=== PATIENT | male | born 1960 | race Two or more races ===

== ENCOUNTER 2018-04-04 18:45 | Emergency (ER) | payer SELFPAY ==
[2018-04-04] MEDS ORDERED: Ondansetron INJ* 2 MG/ML VIAL IV ONE (19:23)
[2018-04-04] MEDS ORDERED: Morphine VIAL* 10 MG/ML 1 ML VIAL IV ONE (19:23)
[2018-04-04] MEDS ORDERED: NS 0.9% 1000 ML* 1,000 ML IV ONE (19:23)
[2018-04-04] MEDS ORDERED: Morphine VIAL* 4 MG/ML VIAL (1 ml vial) ONE (19:26)
[2018-04-04 19:35] LABS: ABS Basophils 0 10^3/ul (0-0.2); ABS Eosinophils 0.2 10^3/ul (0-0.6); ABS Lymphocytes 1.9 10^3/ul (1.0-4.8); ABS Monocytes 0.9 10^3/ul (0-0.8); ABS Neutrophils 4.2 10^3/ul (1.5-7.7); ABS Nucleated RBC 0 10^3/ul; Eosinophil % 2.6 %; Hematocrit 41 % (42-52); Hemoglobin 13.8 g/dl (14.0-18.0); Lymphocyte % 26.4 %; Mean Corpuscular HGB Conc 34 g/dl (31-36); Mean Corpuscular Hemoglobin 28 pg (27-31); Mean Corpuscular Volume 83 fL (80-94); Mean Platelet Volume 7.4 fL (7.4-10.4); Nucleated Red Blood Cells % 0; Platelet Count 262 10^3/ul (150-450); Red Blood Count 4.89 10^6/ul (4.00-5.40); Red Cell Distribution Width 14 % (10.5-15); White Blood Count 7.3 10^3/ul (3.5-10.8)
[2018-04-04 19:52] LABS: EGFR Non-African American 106.5 (>60)
[2018-04-04] MEDS ORDERED: Iohexol 300* (CONTRAST) 10 ML SDV IV ONE (20:40)
[2018-04-04] MEDS ORDERED: Dicyclomine CAP* 10 MG PO ONE (21:26)
--- NOTE | 2018-04-04 21:28 | ED ---
Abdominal Pain/Male - HPI Summary HPI Summary: Patient complains of right lower quadrant pain 4 days, worse today. Abdominal pain described as intermittent, achy, worse with eating, accompanied by diarrhea 4. Denies history of same pain. Admits to history of heartburn. Denies fever, cough, sore throat, CP, SOB, N/V, change in urine. Medical history is HDL. Abdominal surgical history is none. - History of Current Complaint Chief Complaint: EDAbdPain Stated Complaint: ABDOMINAL PAIN Time Seen by Provider: 04/04/18 19:09 Hx Obtained From: Patient Onset/Duration: Gradual Onset, Lasting Days Timing: Intermittent Severity Initially: Moderate Severity Currently: Moderate Pain Intensity: 8 Pain Scale Used: 0-10 Numeric Location: Discrete At: RLQ Radiates: No Character: Dull Aggravating Factor(s): Food Alleviating Factor(s): Nothing Associated Signs And Symptoms: Positive: Diarrhea - Allergies/Home Medications Allergies/Adverse Reactions: Allergies Allergy/AdvReac Type Severity Reaction Status Date / Time No Known Allergies Allergy Verified 04/04/18 18:53 PMH/Surg Hx/FS Hx/Imm Hx Endocrine/Hematology History: Denies: Hx Diabetes Cardiovascular History: Denies: Hx Cardiac Arrest, Hx Hypertension History: Denies: Hx Dialysis, Hx Renal Disease Neurological History: Denies: Hx CVA Psychiatric History: Denies: Hx Autism Infectious Disease History: No Infectious Disease History: Denies: Traveled Outside the [place] in Last 30 Days - Family History Known Family History: Positive: Unknown - Social History Alcohol Use: None Substance Use Type: Reports: None Smoking Status (MU): Never Smoked Tobacco Review of Systems Constitutional: Negative Eyes: Negative ENT: Negative Cardiovascular: Negative Respiratory: Negative Positive: Abdominal Pain, Diarrhea Genitourinary: Negative Musculoskeletal: Negative Skin: Negative Neurological: Negative Psychological: Normal All Other Systems Reviewed And Are Negative: Yes Physical Exam - Summary Physical Exam Summary: Tenderness to palpation of right lower quadrant. Positive heel test. Abdominal exam otherwise unremarkable. Triage Information Reviewed: Yes Vital Signs On Initial Exam: Initial Vitals Temp Pulse Resp BP Pulse Ox 98.6 F 69 16 155/94 99 04/04/18 18:45 04/04/18 18:45 04/04/18 18:45 04/04/18 18:45 04/04/18 18:45 Vital Signs Reviewed: Yes Appearance: Positive: Well-Appearing Skin: Positive: Warm Head/Face: Positive: Normal Head/Face Inspection Eyes: Positive: Normal Neck: Positive: Supple Respiratory/Lung Sounds: Positive: Clear to Auscultation Cardiovascular: Positive: Normal Abdomen Description: Positive: Other: Musculoskeletal: Positive: Normal Neurological: Positive: Normal Psychiatric: Positive: Normal AVPU Assessment: Alert - [place] Coma Scale Best Eye Response: 4 - Spontaneous Best Motor Response: 6 - Obeys Commands Best Verbal Response: 5 - Oriented Coma Scale Total: 15 Diagnostics - Vital Signs Vital Signs Temp Pulse Resp BP Pulse Ox 04/04/18 19:33 15 04/04/18 18:45 98.6 F 69 16 155/94 99 - Laboratory Lab Results: Lab Results 04/04/18 04/04/18 04/04/18 Range/Units 19:23 19:23 19:24 WBC 7.3 (3.5-10.8) 10^3/ul RBC 4.89 (4.00-5.40) 10^6/ul Hgb 13.8 L (14.0-18.0) g/dl Hct 41 L (42-52) % MCV 83 (80-94) fL MCH 28 (27-31) pg MCHC 34 (31-36) g/dl RDW 14 (10.5-15) % Plt Count 262 (150-450) 10^3/ul MPV 7.4 (7.4-10.4) fL Neut % (Auto) 57.8 % Lymph % (Auto) 26.4 % [place] % (Auto) 12.7 % Eos % (Auto) 2.6 % Baso % (Auto) 0.5 % Absolute Neuts (auto) 4.2 (1.5-7.7) 10^3/ul Absolute Lymphs (auto) 1.9 (1.0-4.8) 10^3/ul Absolute Monos (auto) 0.9 H (0-0.8) 10^3/ul Absolute Eos (auto) 0.2 (0-0.6) 10^3/ul Absolute Basos (auto) 0 (0-0.2) 10^3/ul Absolute Nucleated RBC 0 10^3/ul Nucleated RBC % 0 Sodium 138 (135-145) mmol/L Potassium 4.3 (3.5-5.0) mmol/L Chloride 103 (101-111) mmol/L Carbon Dioxide 30 (22-32) mmol/L Anion Gap 5 (2-11) mmol/L BUN 12 (6-24) mg/dL Creatinine 0.76 (0.67-1.17) mg/dL Est GFR ( Amer) 128.8 (>60) Est GFR (Non-Af Amer) 106.5 (>60) BUN/Creatinine Ratio 15.8 (8-20) Glucose 99 (70-100) mg/dL Lactic Acid 0.5 (0.5-2.0) mmol/L Calcium 9.1 (8.6-10.3) mg/dL Total Bilirubin 0.50 (0.2-1.0) mg/dL AST 21 (13-39) U/L ALT 37 (7-52) U/L Alkaline Phosphatase 93 (34-104) U/L C-Reactive Protein 4.13 (<8.01) mg/L Total Protein 7.0 (6.4-8.9) g/dL Albumin 4.1 (3.2-5.2) g/dL Globulin 2.9 (2-4) g/dL Albumin/Globulin Ratio 1.4 (1-3) Lipase < 10 L (11.0-82.0) U/L Result Diagrams: 04/04/18 19:23 04/04/18 19:23 Lab Statement: Any lab studies that have been ordered have been reviewed, and results considered in the medical decision making process. Abdominal Pain Fem Course/Dx - Course Course Of Treatment: Patient complains of right lower quadrant pain 4 days, worse today. Abdominal pain described as intermittent, achy, worse with eating , accompanied by diarrhea 4. Denies history of same pain. Admits to history of heartburn. Denies fever, cough, sore throat, CP, SOB, N/V, change in urine. Medical history is HDL. Abdominal surgical history is none. Physical exam: Tenderness to palpation of right lower quadrant. Positive heel test. Abdominal exam otherwise unremarkable. Vital signs within normal limits and stable. Labs unremarkable. CT abdomen and pelvis unremarkable. Follow-up with GI if symptoms persist. - Diagnoses Provider Diagnoses: Abdominal pain Discharge - Sign-Out/Discharge Documenting (check all that apply): Patient Departure - Discharge Plan Condition: Stable Disposition: HOME Prescriptions: Dicyclomine CAP* [Bentyl CAP*] 20 mg PO TID PRN 10 Days #60 cap PRN Reason: Pain Patient Education Materials: Acute Abdominal Pain (ED) Print Language: SAMI Referrals: No Primary Care Phys,NOPCP [Primary Care Provider] - Derek Montenegro DO [Doctor of Osteopathy] - Additional Instructions: Take ibuprofen and Bentyl for pain. If pain persists follow-up with mattress stripper Dr. Bhatt. Return to the ED for any new or worsening symptoms - Billing Disposition and Condition Condition: STABLE Disposition: Home
[2018-04-04] MEDS ORDERED: Ibuprofen TAB* 600 MG PO ONE (21:34)
== END 2018-04-04 22:20 | disposition home or self-care (01) ==
LOC: ED 18:45
DX: R10.31 Right lower quadrant pain (principal); R19.7 Diarrhea, unspecified
CPT/HCPCS: 36415; 74177; 80053; 83605; 83690; 85025; 86140; 96374; 96375; 99283; J2270; J2405; Q9967